=== PATIENT | male | born 1985 | race Caucasian/White ===

== ENCOUNTER 2018-02-26 16:59 | Outpatient (CLI) | payer OTHER, SELFPAY ==
[2018-02-26 17:19] LABS: Abs Immature Grans 0.03 k/cumm (0.0-0.09); Absolute Basophil Count 0.01 k/cumm (0.0-0.2); Absolute Lymphocyte Count 0.67 k/cumm (1.2-3.4); Absolute Monocyte Count 0.64 k/cumm (0.11-0.7); Absolute Neutrophil Count 3.91 k/cumm (1.2-6.7); Basophils % 0.2; HCT 39.4 % (40.0-50.0); HGB 12.7 g/dL (13.5-17.5); Immature Grans % 0.6; Lymphocytes % 12.7; Mean Corp. HGB Concentration 32.2 g/dL (32.0-36.0); Mean Corpuscular Hemoglobin 32.7 pg (27.0-33.0); Mean Corpuscular Volume 101.5 fL (80-95); Mean Platelet Volume 11.4 fL (8.0-11.0); Monocytes % 12.2; Neutrophils % 74.3; Platelet Count 331 x1000/uL (130-400); RBC 3.88 m/cumm (4.50-6.00); RBC Distribution Width 13.2 % (11.8-14.1); Reticulocyte 2.2 % (0.5-2.4); White Blood Cell Count 5.26 k/cumm (4.4-10.8)
[2018-02-26 18:16] LABS: ALT 55 U/L (12-78); AST 20 U/L (15-37); Albumin 3.8 g/dL (3.4-5.0); Alkaline Phosphatase 60 U/L (46-116); BUN 19 mg/dL (7-18); Bilirubin, Total 0.3 mg/dL (0.2-1.0); CREATININE 0.76 mg/dL (0.70-1.30); Calcium 9.3 mg/dL (8.5-10.1); Chloride 99 mmol/L (98-107); Glucose 94 mg/dL (70-100); LDH 333 U/L (85-227); Potassium 4.2 mmol/L (3.5-5.1); Sodium 133 mmol/L (136-145); Total Protein 7.4 g/dL (6.4-8.2)
== END 2018-02-26 17:19 ==
PROVIDERS: Visit Provider Internal Medicine Hematology & Oncology
DX: D59.1 Other autoimmune hemolytic anemias (principal)
CPT/HCPCS: 36415; 80053; 83615; 85025; 85045

== ENCOUNTER 2018-03-05 16:01 | Outpatient (CLI) | payer OTHER, SELFPAY ==
[2018-03-05 16:20] LABS: Abs Immature Grans 0.02 k/cumm (0.0-0.09); Absolute Basophil Count 0.01 k/cumm (0.0-0.2); Absolute Lymphocyte Count 0.46 k/cumm (1.2-3.4); Absolute Monocyte Count 0.28 k/cumm (0.11-0.7); Absolute Neutrophil Count 7.29 k/cumm (1.2-6.7); Basophils % 0.1; HGB 13.3 g/dL (13.5-17.5); Immature Grans % 0.2; Lymphocytes % 5.7; Mean Corp. HGB Concentration 32.4 g/dL (32.0-36.0); Mean Corpuscular Hemoglobin 32.3 pg (27.0-33.0); Mean Corpuscular Volume 99.5 fL (80-95); Mean Platelet Volume 11.3 fL (8.0-11.0); Monocytes % 3.5; Neutrophils % 90.5; Platelet Count 431 x1000/uL (130-400); RBC 4.12 m/cumm (4.50-6.00); RBC Distribution Width 12.8 % (11.8-14.1); Reticulocyte 1.6 % (0.5-2.4); White Blood Cell Count 8.06 k/cumm (4.4-10.8)
[2018-03-05 16:36] LABS: ALT 51 U/L (12-78); AST 18 U/L (15-37); Albumin 3.8 g/dL (3.4-5.0); Alkaline Phosphatase 71 U/L (46-116); Anion Gap 7.4 mmol/L (3-11); BUN 14 mg/dL (7-18); Bilirubin, Total 0.2 mg/dL (0.2-1.0); CO2 29.6 mmol/L (21.0-32.0); CREATININE 0.85 mg/dL (0.70-1.30); Calcium 9.4 mg/dL (8.5-10.1); Chloride 100 mmol/L (98-107); Glucose 102 mg/dL (70-100); LDH 302 U/L (85-227); Potassium 4.1 mmol/L (3.5-5.1); Sodium 137 mmol/L (136-145); Total Protein 7.8 g/dL (6.4-8.2)
== END 2018-03-05 16:21 ==
PROVIDERS: Visit Provider Internal Medicine Hematology & Oncology
DX: D59.1 Other autoimmune hemolytic anemias (principal)
CPT/HCPCS: 36415; 80053; 83615; 85025; 85045

== ENCOUNTER 2018-03-11 13:02 | Outpatient (CLI) | payer OTHER, SELFPAY ==
[2018-03-11 14:22] LABS: Abs Immature Grans 0.03 k/cumm (0.0-0.09); Absolute Basophil Count 0.01 k/cumm (0.0-0.2); Absolute Lymphocyte Count 0.48 k/cumm (1.2-3.4); Absolute Monocyte Count 0.16 k/cumm (0.11-0.7); Absolute Neutrophil Count 10.07 k/cumm (1.2-6.7); Basophils % 0.1; HCT 42.5 % (40.0-50.0); HGB 13.9 g/dL (13.5-17.5); Immature Grans % 0.3; Lymphocytes % 4.5; Mean Corp. HGB Concentration 32.7 g/dL (32.0-36.0); Mean Corpuscular Hemoglobin 31.9 pg (27.0-33.0); Mean Corpuscular Volume 97.5 fL (80-95); Mean Platelet Volume 12.3 fL (8.0-11.0); Monocytes % 1.5; Neutrophils % 93.6; Platelet Count 408 x1000/uL (130-400); RBC 4.36 m/cumm (4.50-6.00); RBC Distribution Width 12.9 % (11.8-14.1); Reticulocyte 1.4 % (0.5-2.4); White Blood Cell Count 10.75 k/cumm (4.4-10.8)
[2018-03-11 14:49] LABS: ALT 50 U/L (12-78); AST 24 U/L (15-37); Alkaline Phosphatase 79 U/L (46-116); Anion Gap 11.6 mmol/L (3-11); BUN 17 mg/dL (7-18); Bilirubin, Total 0.3 mg/dL (0.2-1.0); CO2 27.4 mmol/L (21.0-32.0); CREATININE 0.83 mg/dL (0.70-1.30); Calcium 9.5 mg/dL (8.5-10.1); Chloride 100 mmol/L (98-107); Glucose 122 mg/dL (70-100); Potassium 4.1 mmol/L (3.5-5.1); Sodium 139 mmol/L (136-145); Total Protein 7.9 g/dL (6.4-8.2)
[2018-03-11 16:17] LABS: LDH 322 U/L (85-227)
== END 2018-03-11 13:22 ==
PROVIDERS: Visit Provider Internal Medicine Hematology & Oncology
DX: D59.1 Other autoimmune hemolytic anemias (principal)
CPT/HCPCS: 36415; 80053; 83615; 85025; 85045

== ENCOUNTER 2018-03-25 12:48 | Outpatient (CLI) | payer OTHER, SELFPAY ==
[2018-03-25 13:08] LABS: Abs Immature Grans 0.02 k/cumm (0.0-0.09); Absolute Basophil Count 0.04 k/cumm (0.0-0.2); Absolute Eosinophil Count 0.06 k/cumm (0.0-0.7); Absolute Lymphocyte Count 1.31 k/cumm (1.2-3.4); Absolute Monocyte Count 0.67 k/cumm (0.11-0.7); Basophils % 0.7; HCT 41.5 % (40.0-50.0); HGB 13.6 g/dL (13.5-17.5); Immature Grans % 0.3; Lymphocytes % 21.5; Mean Corp. HGB Concentration 32.8 g/dL (32.0-36.0); Mean Corpuscular Volume 94.5 fL (80-95); Mean Platelet Volume 11.9 fL (8.0-11.0); Neutrophils % 65.5; Platelet Count 290 x1000/uL (130-400); RBC 4.39 m/cumm (4.50-6.00); RBC Distribution Width 12.9 % (11.8-14.1); Reticulocyte 1.8 % (0.5-2.4)
[2018-03-25 13:19] LABS: ALT 36 U/L (12-78); AST 19 U/L (15-37); Albumin 3.8 g/dL (3.4-5.0); Alkaline Phosphatase 79 U/L (46-116); Anion Gap 6.4 mmol/L (3-11); BUN 16 mg/dL (7-18); Bilirubin, Total 0.3 mg/dL (0.2-1.0); CO2 28.6 mmol/L (21.0-32.0); CREATININE 0.77 mg/dL (0.70-1.30); Calcium 9.3 mg/dL (8.5-10.1); Chloride 101 mmol/L (98-107); Glucose 116 mg/dL (70-100); LDH 271 U/L (85-227); Potassium 3.4 mmol/L (3.5-5.1); Sodium 136 mmol/L (136-145); Total Protein 7.4 g/dL (6.4-8.2)
== END 2018-03-25 13:08 ==
PROVIDERS: PCP Neuromusculoskeletal Medicine & OMM; Visit Provider Internal Medicine Hematology & Oncology
DX: D59.1 Other autoimmune hemolytic anemias (principal)
CPT/HCPCS: 36415; 80053; 83615; 85025; 85045

== ENCOUNTER 2021-08-31 02:06 | Outpatient (RCR) | payer OTHER, SELFPAY | END 2021-09-21 23:59 | disposition home or self-care (01) | LOC: INF 02:06 | PROVIDERS: PCP Neuromusculoskeletal Medicine & OMM; Visit Provider Family Medicine | DX: Z92.25 Personal history of immunosuppression therapy (principal) | CPT/HCPCS: 96372; Q0221 ==

== ENCOUNTER 2022-03-28 02:43 | Outpatient (CLI) | payer OTHER, SELFPAY ==
[2022-03-28 07:38] LABS: Absolute Basophil Count 0.06 10^3/uL (0.0-0.2); Absolute Eosinophil Count 0.02 10^3/uL (0.0-0.7); Absolute Lymphocyte Count 1.39 10^3/uL (1.2-3.4); Absolute Monocyte Count 0.72 10^3/uL (0.1-0.8); Absolute Neutrophil Count 1.08 10^3/uL (1.2-6.7); Basophils % 1.8; Eosinophils % 0.6; HCT 44.3 % (40.0-50.0); Lymphocytes % 42.5; MCHC 33.9 % (32.0-36.0); MCV 89 fL (80-95); MPV 11.2 fL (8.0-11.0); Neutrophils % 33.1; Platelet Count 283 10^3/uL (130-400); RDW 13.3 % (11.8-14.1); RDW-SD 43.2 fL; Reticulocyte 1.9 % (0.5-2.4); WBC 3.27 10^3/uL (4.4-10.8)
[2022-03-28 08:00] LABS: ALT 39 U/L (16-63); AST 27 U/L (15-37); Albumin 4.2 g/dL (3.4-5.0); Alkaline Phosphatase 77 U/L (46-116); Anion Gap 4.7 mmol/L (3-11); BUN 20 mg/dL (7-18); Bilirubin, Total 0.4 mg/dL (0.2-1.0); CO2 30.3 mmol/L (21.0-32.0); CREATININE 0.8 mg/dL (0.70-1.30); Chloride 102 mmol/L (98-107); Glucose 105 mg/dL (74-106); LDH 200 U/L (85-227); Potassium 4.5 mmol/L (3.5-5.1); Sodium 137 mmol/L (136-145); Total Protein 7.3 g/dL (6.4-8.2)
== END 2022-03-28 02:44 | disposition home or self-care (01) ==
LOC: LBO 02:43
PROVIDERS: PCP Neuromusculoskeletal Medicine & OMM; Visit Provider Internal Medicine Hematology & Oncology
DX: D69.41 Evans syndrome (principal); D69.3 Immune thrombocytopenic purpura
CPT/HCPCS: 36415; 80053; 83615; 85025; 85045

== ENCOUNTER 2022-03-28 09:06 | Outpatient (RCR) | payer OTHER, SELFPAY | END 2022-04-23 23:59 | disposition home or self-care (01) | LOC: INF 09:06 | PROVIDERS: PCP Neuromusculoskeletal Medicine & OMM; Visit Provider Internal Medicine Hematology & Oncology | DX: D69.3 Immune thrombocytopenic purpura (principal); Z29.8 Encounter for other specified prophylactic measures | CPT/HCPCS: 96372; Q0221 ==

== ENCOUNTER 2022-09-19 01:59 | Outpatient (CLI) | payer OTHER, SELFPAY ==
[2022-09-19 14:07] LABS: Abs Immature Grans 0.01 10^3/uL (0.0-0.06); Absolute Basophil Count 0.04 10^3/uL (0.0-0.2); Absolute Eosinophil Count 0.02 10^3/uL (0.0-0.7); Absolute Lymphocyte Count 1.69 10^3/uL (1.2-3.4); Absolute Monocyte Count 0.73 10^3/uL (0.1-0.8); Absolute Neutrophil Count 1.36 10^3/uL (1.2-6.7); Eosinophils % 0.5; HCT 41.5 % (40.0-50.0); HGB 14.5 g/dL (13.5-17.5); Immature Grans % 0.3; Lymphocytes % 43.9; MCH 30.3 pg (27.0-33.0); MCHC 34.9 % (32.0-36.0); MCV 87 fL (80-95); MPV 11.2 fL (8.0-11.0); Neutrophils % 35.3; Platelet Count 314 10^3/uL (130-400); RBC 4.79 10^6/uL (4.36-5.78); RDW 13.5 % (11.8-14.1); RDW-SD 43.5 fL; Reticulocyte 2.2 % (0.5-2.4); WBC 3.85 10^3/uL (4.4-10.8)
[2022-09-19 14:25] LABS: ALT 32 U/L (16-63); AST 25 U/L (15-37); Albumin 3.9 g/dL (3.4-5.0); Alkaline Phosphatase 94 U/L (46-116); Anion Gap 9.5 mmol/L (3-11); BUN 13 mg/dL (7-18); Bilirubin, Total 0.3 mg/dL (0.2-1.0); CO2 27.5 mmol/L (21.0-32.0); CREATININE 0.7 mg/dL (0.70-1.30); Calcium 8.9 mg/dL (8.5-10.1); Chloride 102 mmol/L (98-107); Estimated GFR 121.71 (mL/min/1.73m2); Glucose 104 mg/dL (74-106); LDH 190 U/L (85-227); Potassium 3.5 mmol/L (3.5-5.1); Sodium 139 mmol/L (136-145); Total Protein 6.8 g/dL (6.4-8.2)
== END 2022-09-19 02:00 | disposition home or self-care (01) ==
LOC: LBO 01:59
PROVIDERS: PCP Neuromusculoskeletal Medicine & OMM; Visit Provider Internal Medicine Hematology & Oncology
DX: D69.41 Evans syndrome (principal)
CPT/HCPCS: 36415; 80053; 83615; 85025; 85045